=== PATIENT | male | born 1970 | race Caucasian/White ===

== ENCOUNTER 2018-02-02 09:47 | Emergency (ER) | payer OTHER ==
[2018-02-02 10:16] VITALS: TEMP 99.2
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
[2018-02-02] MEDS ORDERED: Lidocaine 5% Patch TD STA ×2 (10:23→11:35)
[2018-02-02] MEDS ORDERED: Lidocaine 5% Patch TD ONE (10:37)
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
--- NOTE | 2018-02-02 11:40 | CT ---
Date of service: 02/02/2018 PROCEDURE: CT Cervical Spine without contrast HISTORY: TRAUMA COMPARISON: None available. TECHNIQUE: Axial computed tomography images were obtained of the cervical spine without the use of intravenous contrast. Coronal and sagittal reformatted images were created and reviewed. Radiation dose: Total exam DLP = 496.91 mGy-cm. This CT exam was performed using one or more of the following dose reduction techniques: Automated exposure control, adjustment of the mA and/or kV according to patient size, and/or use of iterative reconstruction technique. FINDINGS: VERTEBRAE: The vertebral bodies are maintained in height. Normal alignment is maintained. There is mild reversal of the normal lordotic curvature of the cervical spine which indicates possible muscular spasm. The atlantoaxial articulation and odontoid process are intact. . DISCS/SPINAL CANAL/NEURAL FORAMINA: There is minimal narrowing of the intervertebral disc space at C4-5 and C5-6 associated with osteophyte formation, consistent with degenerative disc disease. There is no gross central spinal canal stenosis. PARASPINAL SOFT TISSUES: Unremarkable. OTHER FINDINGS: None. IMPRESSION: No evidence of fracture/ dislocation. Possible muscular spasm. Degenerative disc disease at C4-5 and C5-6.
[2018-02-02 12:05] VITALS: BP 120/80; PULSE 65; RESP 16
[2018-02-02 12:17] VITALS: O2SAT 100
== END 2018-02-02 12:04 | disposition home or self-care (01) ==
LOC: C.ER 09:47
DX: T14.8XXA Other injury of unspecified body region, initial encounter (principal); Y04.0XXA Assault by unarmed brawl or fight, initial encounter